=== PATIENT | female | born 1985 | race Caucasian/White ===

== ENCOUNTER 2025-01-08 08:03 | Outpatient (AMB) | payer BC, SELFPAY ==
[2025-01-08 08:14] VITALS: BP 110/82; PULSE 70; RESP 16; O2SAT 100; BMI 23.1
--- NOTE | 2025-01-08 08:14 | MHC.OFFVIS ---
Vital Signs 01/08/25 08:14 Height 5 ft 6 in Weight 143 lb BMI 23.1 BP 110/82 Blood Pressure Location Rt brachial Position Sitting Respiration 16 Pulse 70 Pulse Oximetry (%) 100 Intake Visit Reasons: Re-Establish Care - Migraine Credentials Specialist Required: No Allergies No Known Allergies Allergy (Verified 01/08/25 08:13) HPI Comments Details: Airam is a 39-year-old female patient following in Neurology for chronic migraine with history of anxiety and significant bruxism. It was previously following [facility] at [facility]. For her migraines, we did try several agents for prevention which were not successful. Eventually we tried Botox. She previously had been getting Dysport for bruxism which had also provided some benefit. Today she presents to the clinic to reestablish care with myself for treatment of her migraines. She last received Botox therapy for migraine protocol in September of 2024. After her treatment, she had excellent relief of her migraines. She believes that the Botox had provided better efficacy for treatment of her migraines then the Dysport previously. Overall, she was very happy with the therapy and had a significant reduction in both the severity and frequency of her migraines. She had 1 or 2 mild migraines over the course of a 3 month time span for which she did not need to take her Nurtec. It was only approximately 1 week ago when she started to have her migraines return. She is currently having migraines on a daily basis which are becoming slightly more severe now that her Botox has worn off. She would have been due for Botox therapy in the week of December. She does note that she took her Nurtec this morning and had excellent relief of her migraine with use of the Nurtec 75 mg. Nurtec generally relieves her headaches at 100% within an hour. When her migraines to occur, they are located some left side typically supraorbital, retro-orbital, and temporal. Rarely will she have right-sided headaches. Most of her headaches are accompanied by nausea, light sensitivity, and sound sensitivity. When they become severe, they have in the past lasted up to 2 days. Other related background information: Sleep:Sleep can be disturbed due to children Occupation: Pre-k teacher Stressors:Home and work balance Hydration:2- 30oz bottles of water per day Caffeine intake:1 tea daily Alcohol intake:No Substance use:No Tobacco use:No Last eye exam:A couple of years ago Last dental visit:November 2024 History of head injury:No Family planning considerations:Currenly on bc. NO plans to become Past medication trials include: Topiramate fatigue and nausea Propranolol-dizziness Flexeril had been marginally beneficial Sumatriptan-serotonergic side effects, jaw tightening Rizatriptan arms heavy, jaw tingling Almotriptan ineffective Naratriptan-ineffective and caused lightheadedness Nurtec- Currently taking PFSH Medical History (Updated 01/08/25 @ 09:09 by Rebeca Rascon CNP) Migraine Family History (Updated 01/08/25 @ 08:11 by Nelly Cruz CMA) Father Hypertension Mother HLD (hyperlipidemia) Social History (Updated 01/08/25 @ 08:11 by Nelly Cruz CMA) Household Members: Spouse Alcohol intake: never Patient Tobacco Use Status: Never used Tobacco Use of substances other than those prescribed or required for medical reasons: No Review of Systems Const All systems reviewed & are unremarkable except as noted in HPI and below Physical Exam Vital Signs: Last Vital Signs Pulse 70 01/08/25 08:14 Resp 16 01/08/25 08:14 BP 110/82 01/08/25 08:14 Pulse Ox 100 01/08/25 08:14 BMI result Body Mass Index 23.1 Const General: cooperative, healthy appearing, comfortable and no acute distress Nutritional Appearance: well nourished Orientation/consciousness: patient oriented x3 Limitations: no limitations HEENT Head: Yes normal to inspection and Yes normocephalic Eyes General: appearance normal, both eyes and all related structures Visual Leal: normal visual leal by confrontation Alignment and Position: alignment normal Periorbital: periorbital findings normal Eyelids: Yes eyelids normal Conjunctivae: conjunctivae normal Sclerae: sclerae normal Neck Neck: Yes normal visual inspection and Yes full ROM General: Yes no CVA tenderness Back/Spine/Pelvis Back: no CVA tenderness Cervical Spine: normal cervical lordosis Thoracic/Lumbar Spine: thoracic and lumbar spine normal to inspection Neuro General: patient oriented x3, tone normal and deep tendon reflexes 2+ bilaterally Cranial nerves: Yes CN's II-XII intact bilaterally and Yes Facial sensation intact/muscles of mastication intact Cognition (Neuro): normal cognition Gait exam (Neuro): Normal gait present Motor exam (neuro): 5/5 motor strength present throughout and no tremor noted Sensory Exam: double simultaneous stimulation for sensation normal Romberg Test: Negative Pupils: Normal pupillary reactivity/response: bilateral Psych Appearance: grossly normal Mental Status: mental status grossly normal Speech and movement: Normal speech and movement present and Clear speech present Affect: normal affect Attitude: cooperative Thought process: Normal thought process present Thought content: Normal thought content present Insight: Good insight present (Psych) Judgement: Good judgement present (Psych) Assessment & Plan Assessment & Plan (1) Chronic migraine without aura without status migrainosus, not intractable: Code(s): G43.709 - Chronic migraine without aura, not intractable, without status migrainosus Category: Medical Plan: . Shanelle Alegria is a 39-year-old female patient following in Neurology for chronic migraine with history of anxiety and significant bruxism. She has historically had excellent relief of her migraines with use of Botox therapy. She has undergone numerous trials of other alternative agents without success. She also has relief of her migraines acutely with use of Nurtec 75 mg. I would like to continue her Nurtec as well as her Botox therapy. We will establish a new prior authorization here at [facility] and once this has been established, we will book her for her procedural visit. -Continue nurtec 75mg for acute migriane -Continue with Botox therapy for choronic migriane -Will book office visit once PA has been established Coding Level of Care Code New Pt Level 4 (01718) Diagnoses Chronic migraine without aura without status migrainosus, not intractable G43.709
== END 2025-01-08 09:24 | disposition home or self-care (01) ==
LOC: HO.HSM 08:04
PROVIDERS: PCP Internal Medicine; Visit Provider Nurse Practitioner
DX: G43.709 Chronic migraine without aura, not intractable, without status migrainosus (principal)
CPT/HCPCS: 99204

== ENCOUNTER 2025-01-29 07:46 | Outpatient (AMB) | payer BC, SELFPAY ==
--- NOTE | 2025-01-29 07:46 | A.OFFVIS_ITS ---
Vital Signs 01/29/25 07:50 Height 5 ft 6 in Weight 143 lb BMI 23.1 BP 120/84 Blood Pressure Location Rt brachial Position Sitting Respiration 16 Pulse 99 Pulse Source Pulse Oximeter Pulse Oximetry (%) 99 Intake Visit Reasons: 200U BOTOX Marine Insulator Required: No Allergies No Known Allergies Allergy (Verified 01/08/25 08:13) HPI Comments Details: Airam is a 39-year-old female patient following in Neurology for chronic migraine with history of anxiety and significant bruxism here today for Botox therapy. Per previously documented HPI: She last received Botox therapy for migraine protocol in September of 2024. After her treatment, she had excellent relief of her migraines. She believes that the Botox had provided better efficacy for treatment of her migraines then the Dysport previously. Overall, she was very happy with the therapy and had a significant reduction in both the severity and frequency of her migraines. She had 1 or 2 mild migraines over the course of a 3 month time span for which she did not need to take her Nurtec. It was only approximately 1 week ago when she started to have her migraines return. She is currently having migraines on a daily basis which are becoming slightly more severe now that her Botox has worn off. She would have been due for Botox therapy in the week of December. She does note that she took her Nurtec this morning and had excellent relief of her migraine with use of the Nurtec 75 mg. Nurtec generally relieves her headaches at 100% within an hour. When her migraines to occur, they are located some left side typically supraorbital, retro-orbital, and temporal. Rarely will she have right-sided headaches. Most of her headaches are accompanied by nausea, light sensitivity, and sound sensitivity. When they become severe, they have in the past lasted up to 2 days . Other related background information: Sleep:Sleep can be disturbed due to children Occupation: Pre-k teacher Stressors:Home and work balance Hydration:2- 30oz bottles of water per day Caffeine intake:1 tea daily Alcohol intake:No Substance use:No Tobacco use:No Last eye exam:A couple of years ago Last dental visit:November 2024 History of head injury:No Family planning considerations:Currenly on bc. NO plans to become Past medication trials include: Topiramate fatigue and nausea Propranolol-dizziness Flexeril had been marginally beneficial Sumatriptan-serotonergic side effects, jaw tightening Rizatriptan arms heavy, jaw tingling Almotriptan ineffective Naratriptan-ineffective and caused lightheadedness Nurtec- Currently taking PFSH Medical History (Updated 01/08/25 @ 09:09 by Rebeca Rascon CNP) Migraine Family History (Updated 01/08/25 @ 08:11 by Nelly Cruz CMA) Father Hypertension Mother HLD (hyperlipidemia) Social History (Updated 01/08/25 @ 08:11 by Nelly Cruz CMA) Household Members: Spouse Alcohol intake: never Patient Tobacco Use Status: Never used Tobacco Physical Exam Const General: cooperative, healthy appearing, comfortable and no acute distress Nutritional Appearance: well nourished Orientation/consciousness: patient oriented x3 Limitations: no limitations HEENT Head: Yes normal to inspection and Yes normocephalic Eyes General: appearance normal, both eyes and all related structures Visual Arteaga: normal visual arteaga by confrontation Alignment and Position: alignment normal Periorbital: periorbital findings normal Eyelids: Yes eyelids normal Conjunctivae: conjunctivae normal Sclerae: sclerae normal Neck Neck: Yes normal visual inspection and Yes full ROM General: Yes no CVA tenderness Back/Spine/Pelvis Back: no CVA tenderness Cervical Spine: normal cervical lordosis Thoracic/Lumbar Spine: thoracic and lumbar spine normal to inspection Neuro General: patient oriented x3, tone normal and deep tendon reflexes 2+ bilaterally Cranial nerves: Yes CN's II-XII intact bilaterally and Yes Facial sensation intact/muscles of mastication intact Cognition (Neuro): normal cognition Gait exam (Neuro): Normal gait present Motor exam (neuro): 5/5 motor strength present throughout and no tremor noted Sensory Exam: double simultaneous stimulation for sensation normal Romberg Test: Negative Pupils: Normal pupillary reactivity/response: bilateral Psych Appearance: grossly normal Mental Status: mental status grossly normal Speech and movement: Normal speech and movement present and Clear speech present Affect: normal affect Attitude: cooperative Thought process: Normal thought process present Thought content: Normal thought content present Insight: Good insight present (Psych) Judgement: Good judgement present (Psych) Office Procedures Botulinum toxin Injection Details: Procedure: Botox therapy for Chronic Migraine Laterally: Bilateral Indications: Chronic Migraine Medications: Botox 155units How the med was supplied: Patient supplied Timeout performed before procedure, patient identified with full name and date of . Risks and benefits of procedure reviewed, as well as site verified, sonsent signed, allergies reviewed, and medication reconsilliatino reviewed/completed. Following universal hygiene protocol and PREEMPT protocol, Botox 200unit vial was reconstituted with 4cc normal saline for a final concentration of 5units/0.1cc. The areas of injection were cleansed with alcohol. A 30g 0.5 needle was used to administer the injections as below. Procerus: 5units midline Assistant District Attorney: 5units left and 5units right Frontalis: 10units left and 10units right Temporalis: 20units left and 20units right Occipitalis:15units left and 15units right Cervical paraspinal 10units left and 10units right Trapezius 15units left and 15units right No noted paresthesias during injection 155units of Botox used and 45units wasted per PREEMPT protocol Complications: None Patient was observed for 15 minutes after the procedure and discharged home with instructions to apply ice to their head as needed. 99901 - Migraine Procedure code (CPT) selection complete Office Meds onabotulinumtoxinA 200 unit solution for injection Performing Provider: Rebeca Rascon CNP Performing Location: [facility] Administered by: Rebeca Rascon CNP on 01/29/25 08:09 Dose Route Admin Location Dispensed Lot Number Expiration Date [facility] Pattern Vault Clerk 155 unit IM 200 units [id number] 10/21/26 2558-3619-16 [employer] AN/BOTOX Total Dispensed Waste 200 units 22.5 % Assessment & Plan Assessment & Plan (1) Chronic migraine without aura without status migrainosus, not intractable: Code(s): G43.709 - Chronic migraine without aura, not intractable, without status migrainosus Category: Medical Plan: Airam is a 39-year-old female patient following in Neurology for chronic migraine with history of anxiety and significant bruxism here today for Botox therapy. Botox was provided today without any complications. She was discharged home at baseline and will return in 12 weeks for another round of Botox therapy. -Continue Botox for preventive therapy -Continue Nurtec 75mg as needed for acute therapy -12 weeks for next round of Botox therapy Orders: Orders AMB Botulinum toxin Injection - Patient Supplied N/C Today G43.709 - Chronic migraine without aura, not intractable, without status migrainosus Coding Level of Care Code Est Pt Level 1 (59526) Diagnoses Chronic migraine without aura without status migrainosus, not intractable G43.709 CPT Codes Botox Injection - Botox 3: 00779 - Migraine ([id number])
[2025-01-29 07:50] VITALS: BP 120/84; PULSE 99; RESP 16; O2SAT 99; BMI 23.1
--- OUTSIDE RECORDS SUMMARY | 2025-01-29 07:50 | XMS_ITS | Clinical Summary ---
Author Organization [facility] Address [address] [place] [address] Care Team Providers Care Switch Foreman Name Role Phone Jostin Sharma Primary Care Provider [phone] Social History Tobacco Use Types Packs/Day Years Used Date Smoking Tobacco: Never Assessed Comments Unknown Sex and Gender Information Value Date Recorded Sex Assigned at Not on file Legal Sex Female 2:47 PM EST Gender Identity Not on file Sexual Orientation Not on file Plan of Treatment Health Maintenance Due Date Last Done Comments Hepatitis C Virus Screening 1987 HIV Screening 2000 DTaP/Tdap/Td Vaccines (1 - Tdap) 2006 Hepatitis B Vaccines (1 of 3 - 19+ 3-dose series) 2006 COVID-19 Vaccine ( - 2023-2 5 season) 2024 HPV Vaccines (No Doses Required) Completed Pneumococcal Vaccine: Pediat sonido (0-5 Years) and At-Risk Patients (6 to 49 Years) Aged Out No longer eligible b ased on patient's age to complete this topic Care Teams Switch Foreman Relationship Specialty Start Date End Date Jostin Sharma [address] [place] [address] PCP - General
--- OUTSIDE RECORDS SUMMARY | 2025-01-29 07:50 | XMS_ITS | Clinical Summary ---
Author Organization [facility] Address [address] [place] [address] Care Team Providers Care Ultrasound Tester Name Role Phone Alfredito Hernandez Primary Care Provider [phone] Allergies No known active allergies Medications Lessina 0.1-20 mg-mcg per tablet Ac tive spironolactone (ALDACTONE) 25 mg tablet 3 times a day. 4 Active LORazepam (ATIVAN) 0.5 mg tablet Active cyclobenzaprine (FLEXERIL) 10 mg tablet SMARTSI Tablet(s) By Mouth Every Night PRN 4 Active Nurtec ODT 75 mg tablet,disintegrati ng disintegrating tablet See Instructions , DISSOLVE 1 TABLET ON THE TONGUE EVERY 24 HOURS NEEDED FOR MIGRAINE HEADACHE. NOT TO EXCEED 75 MG IN 24 HOURS, # 8 tablet, 3 Refills, Maintenance, 01/16/24 12:25:00 PM EDT, [id number], 167, cm, 12/22/23 15:32:00 EDT, Height 4 Active dexAMETHasone 0.5 mg/5 mL solution once a day. 4 Active propranolol LA (INDERAL LA) 60 mg capsule Take 1 capsule (60 mg total) by mouth once a day. 90 capsule 3 4 Active Active Problems Problem Noted Date Diagnosed Date Bruxism 04/08/2024 Social History Tobacco Use Types Packs/Day Years Used Date Smoking Tobacco: Never Smokeless Tobacco: Never Tobacco Cessation:Counseling Given: Not Answered Alcohol Use Standard Drinks/Week Comments Never 0 (1 standard drink = 0.6 oz pur e alcohol) Comments Unknown Sex and Gender Information Value Date Recorded Sex Assigned at Female 03/13/2024 3:22 PM EST Legal Sex Female 3:19 PM EST Gender Identity Female 04/01/2024 1:03 PM EST Sexual Orientation Straight 04/01/2024 1: 03 PM EST Last Filed Vital Signs Vital Sign Reading Time Taken Comments Blood Pressure 128/90 04/08/2024 11:19 AM EST Pulse 107 04/08/2024 11:19 AM EST Temperature 37.2 C (99 F) 04/08/2024 11:12 AM EST Respiratory Rate 18 04/08/2024 11:12 AM EST Oxygen Saturation 99% 04/08/2024 11:12 AM EST Inhaled Oxygen Concentration - - Weight 64.9 kg (143 lb) 04/08/2024 11:12 AM EST Height 167.6 cm (5' 6 ) 04/08/2024 11:12 AM EST Body Mass Index 23.08 04/08/2024 11:12 AM EST Plan of Treatment Health Maintenance Due Date Last Done Comments Cervical Cancer Screening 1987 HIV Screening 1987 HPV and Pap Smear 1987 Hepatitis C Screening 1987 Pap Smear 1987 Varicella Vaccines (1 of 2 - 13+ 2-dose series) 2000 Hepatitis B Vaccines (1 of 3 - 19+ 3-dose series) 2006 Alcohol/Substance Use Screening 04/24/2024 Depression Screening and Follow-Up 04/24/2024 Social Drivers of Health Annual Screening 04/24/2024 COVID-19 Vaccine ( season) 2024 05/09/2021, 07/29/2020, 07/07/2020 Influenza Vaccine (#1) 2024 , 02/01/2023, 01/31/2022, Additional history exists DTaP,Tdap,and Td Vaccines (3 - Td or Tdap) 01/24/2028 01/23/2018, 04/07/2016 RSV Vaccine (60+ years old and patients) (1 - 1-dose 75+ series) 2062 Pneumococcal Vaccine: Pediatric (0-5 Years) and At-Risk Patients (6-50 Years) Aged Out No longer eligible based on patient's age to complete this topic Insurance [facility] HMO/POS Care Teams Ultrasound Tester Relationship Specialty Start Date End Date Alfredito Hernandez [address] [place] [id number] PCP - General Internal Medicine 03/13/24
== END 2025-01-29 08:13 | disposition home or self-care (01) ==
LOC: HO.HSM 07:47
PROVIDERS: PCP Internal Medicine; Visit Provider Nurse Practitioner
DX: G43.709 Chronic migraine without aura, not intractable, without status migrainosus (principal)
CPT/HCPCS: 64615

== ENCOUNTER → 2025-01-29 07:46 | Outpatient (BNVA) | payer BC, SELFPAY | PROVIDERS: PCP Internal Medicine; Visit Provider Nurse Practitioner | DX: G43.709 Chronic migraine without aura, not intractable, without status migrainosus (principal) | CPT/HCPCS: 64615; J0585 ==

== ENCOUNTER 2025-04-22 08:10 | Outpatient (AMB) | payer BC, SELFPAY ==
--- NOTE | 2025-04-22 07:36 | A.OFFVIS_ITS ---
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 Per previously documented HPI: She last received Botox therapy for migraine protocol in September of 2024. After h er treatment, she had excellent relief of her migraines. She believes that the Botox had provided better efficacy for treatment of her migraines then the Dysport previously. Overall, she was very happy with the therapy and had a significant reduction in both the severity and frequency of her migraines. She had 1 or 2 mild migraines over the course of a 3 month time span for which she did not need to take her Nurtec. It was only approximately 1 week ago when she started to have her migraines return. She is currently having migraines on a daily basis which are becoming slightly more severe now that her Botox has worn off. She would have been due for Botox therapy in the of December. She does note that she took her Nurtec this morning and had excellent relief of her migraine with use of the Nurtec 75 mg. Nurtec generally relieves her headaches at 100% within an hour. When her migraines to occur, they are located some left side typically supraorbital, retro-orbital, and temporal. Rarely will she have right-sided headaches. Most of her headaches are accompanied by nausea, light sensitivity, and sound sensitivity. When they become severe, they have in the past lasted up to 2 days . Krista tells me today that since the time of our last visit she has not had any major changes to the frequency or severity of her migraines. She has had about 3 migraine headaches since the time of her last visit for which she took Nurtec with good effect. She also had some mild low-grade headaches over the course of the last week as the upcoming Botox appointment was getting closer. She has not noticed wear off in the past until most recently. She does also mention however that she had a fall and injured a couple of rib fractures which may have contributed to some tension buildup. Other related background information: Sleep:Sleep can be disturbed due to children Occupation: Pre-k teacher Stressors:Home and work balance Hydration:2- 30oz bottles of water per day Caffeine intake:1 tea daily Alcohol intake:No Substance use:No Tobacco use:No Last eye exam:A couple of years ago Last dental visit:November 2024 History of head injury:No Family planning considerations:Currenly on bc. NO plans to become Past medication trials include: Topiramate fatigue and nausea Propranolol-dizziness Flexeril had been marginally beneficial Sumatriptan-serotonergic side effects, jaw tightening Rizatriptan arms heavy, jaw tingling Almotriptan ineffective Naratriptan-ineffective and caused lightheadedness Nurtec- Currently taking PFSH Medical History (Updated 01/08/25 @ 09:09 by Rebeca Rascon CNP) Migraine Family History (Updated 01/08/25 @ 08:11 by Nelly Cruz CMA) Father Hypertension Mother HLD (hyperlipidemia) Social History (Updated 01/08/25 @ 08:11 by Nelly Cruz CMA) Household Members: Spouse Alcohol intake: never Patient Tobacco Use Status: Never used Tobacco Review of Systems Const All systems reviewed & are unremarkable except as noted in HPI and below Physical Exam Const General: cooperative, healthy appearing, comfortable and no acute distress Nutritional Appearance: well nourished Orientation/consciousness: patient oriented x3 Limitations: no limitations HEENT Head: Yes normal to inspection and Yes normocephalic Eyes General: appearance normal, both eyes and all related structures Visual Arteaga: normal visual arteaga by confrontation Alignment and Position: alignment normal Periorbital: periorbital findings normal Eyelids: Yes eyelids normal Conjunctivae: conjunctivae normal Sclerae: sclerae normal Neck Neck: Yes normal visual inspection and Yes full ROM General: Yes no CVA tenderness Back/Spine/Pelvis Back: no CVA tenderness Cervical Spine: normal cervical lordosis Thoracic/Lumbar Spine: thoracic and lumbar spine normal to inspection Neuro General: patient oriented x3, tone normal and deep tendon reflexes 2+ bilaterally Cranial nerves: Yes CN's II-XII intact bilaterally and Yes Facial sensation intact/muscles of mastication intact Cognition (Neuro): normal cognition Gait exam (Neuro): Normal gait present Motor exam (neuro): 5/5 motor strength present throughout and no tremor noted Sensory Exam: double simultaneous stimulation for sensation normal Romberg Test: Negative Pupils: Normal pupillary reactivity/response: bilateral Psych Appearance: grossly normal Mental Status: mental status grossly normal Speech and movement: Normal speech and movement present and Clear speech present Affect: normal affect Attitude: cooperative Thought process: Normal thought process present Thought content: Normal thought content present Insight: Good insight present (Psych) Judgement: Good judgement present (Psych) Office Procedures Botulinum toxin Injection Details: Procedure: Botox therapy for Chronic Migraine Laterally: Bilateral Indications: Chronic Migraine Medications: Botox 155units How the med was supplied: Patient supplied Timeout performed before procedure, patient identified with full name and date of . Risks and benefits of procedure reviewed, as well as site verified, sonsent signed, allergies reviewed, and medication reconsilliatino reviewed/completed. Following universal hygiene protocol and PREEMPT protocol, Botox 200unit vial was reconstituted with 4cc normal saline for a final concentration of 5units/0.1cc. The areas of injection were cleansed with alcohol. A 30g 0.5 needle was used to administer the injections as below. Procerus: 5units midline Holistic Specialist: 5units left and 5units right Frontalis: 10units left and 10units right Temporalis: 20units left and 20units right Occipitalis:15units left and 15units right Cervical paraspinal 10units left and 10units right Trapezius 15units left and 15units right No noted paresthesias during injection 155units of Botox used and 45units wasted per PREEMPT protocol Complications: None Patient was observed for 15 minutes after the procedure and discharged home with instructions to apply ice to their head as needed. 55984 - Migraine Procedure code (CPT) selection complete Office Meds onabotulinumtoxinA 200 unit solution for injection Performing Provider: Rebeca Rascon CNP Performing Location: [facility] Administered by: Rebeca Rascon CNP on 04/22/25 08:04 Dose Route Admin Location Dispensed Lot Number Expiration Date [facility] Digital [employer] 155 unit IM 200 units [id number] 07/23/27 1663-7529-01 [employer] AN/BOTOX Total Dispensed Waste 200 units 22.5 % Assessment & Plan Assessment & Plan (1) Chronic migraine without aura without status migrainosus, not intractable: Code(s): G43.709 - Chronic migraine without aura, not intractable, without status migrainosus Category: Medical Plan: Airam is a 40-year-old female patient following in Neurology for chronic migraine with history of anxiety and significant bruxism here today for Botox therapy. Botox was provided today without any complications. She was discharged home at baseline and will return in 12 weeks for another round of Botox therapy. -Continue Botox for preventive therapy -Continue Nurtec 75mg as needed for acute therapy -12 weeks for next round of Botox therapy Orders: Orders AMB Botulinum toxin Injection - Patient Supplied N/C Today G43.709 - Chronic migraine without aura, not intractable, without status migrainosus Coding Level of Care Code Est Pt Level 3 (91623) Diagnoses Chronic migraine without aura without status migrainosus, not intractable G43.709 CPT Codes Botox Injection - Botox 3: 85003 - Migraine ([id number])
[2025-04-22 07:48] VITALS: BP 108/78; PULSE 90; RESP 16; O2SAT 100; BMI 23.1
--- OUTSIDE RECORDS SUMMARY | 2025-04-22 09:38 | XMS_ITS | Clinical Summary ---
Author Organization [facility] Address [address] [place] [address] Care Team Providers Care Chief Inspector Name Role Phone Alfredito Hernandez Primary Care Provider [phone] Allergies No known active allergies Medications Lessina [...] 3 Refills, Maintenance, 01/16/24 12:25:00 PM EDT, [id number], 167, cm, 12/22/23 15:32:00 EDT, Height 4 [...] Social Drivers of Health Annual Screening 04/24/2024 Influenza Vaccine (#1) 2024 , 02/01/2023, 01/31/2022, Additional history exists COVID-19 Vaccine (2024- season) 2024 05/09/2021, 07/29/2020, 07/07/2020 DTaP,Tdap,and Td Vaccines (3 - Td or Tdap) 01/24/2028 01/23/2018, 04/07/2016 Pneumococcal Vaccine: Pediatric (0-5 Years) and At-Risk Patients (6-50 Years) Aged Out No longer eligible based on patient's age to complete this topic Insurance [facility] HMO/POS Care Teams Chief Inspector Relationship Specialty Start Date End Date Alfredito Hernandez [address] [place] [id number] PCP - General Internal Medicine 03/13/24
--- OUTSIDE RECORDS SUMMARY | 2025-04-22 09:38 | XMS_ITS | Clinical Summary ---
Author Organization [facility] Address [address] [place] [address] Care Team Providers Care Foundation Engineer Name Role Phone Unavailable Primary Care Provider Unavailabl e Social History Tobacco Use Types Packs/Day Years Used Date Smoking Tobacco: Never Assessed Comments Unknown Sex and Gender Information Value Date Recorded Sex Assigned at Not on file Legal Sex Female 11:30 PM EST Gender Identity Not on file Sexual Orientation Not on file Plan of Treatment Not on file
== END 2025-04-22 08:28 | disposition home or self-care (01) ==
LOC: HO.HSM 08:10
PROVIDERS: PCP Internal Medicine; Visit Provider Nurse Practitioner
DX: G43.709 Chronic migraine without aura, not intractable, without status migrainosus (principal)
CPT/HCPCS: 64615; 99213

== ENCOUNTER → 2025-04-22 08:10 | Outpatient (BNVA) | payer BC, SELFPAY | PROVIDERS: PCP Internal Medicine; Visit Provider Nurse Practitioner | DX: G43.709 Chronic migraine without aura, not intractable, without status migrainosus (principal) | CPT/HCPCS: 64615; J0585 ==